=== PATIENT | female | born 1985 | race Two or more races ===

== ENCOUNTER 2023-05-27 07:20 | Emergency (ER) | payer OTHER ==
[~2023-05-27] VITALS: Ht 157.5 cm; Wt 69.1 kg
[2023-05-27 07:46] VITALS: BP 142/94; PULSE 110; RESP 17; TEMP 98.8; O2SAT 96
[2023-05-27 08:21] LABS: Rapid Influenza A Negative (Negative)
[2023-05-27 08:22] LABS: Rapid Influenza B Positive (Negative)
[2023-05-27 08:23] LABS: COVID19 ANTIGEN SOFIA FIA NEGATIVE (NEGATIVE)
[2023-05-27] MEDS ORDERED: ACET500T58 PO (08:27)
== END 2023-05-27 08:31 | disposition home or self-care (01) ==
LOC: ER 07:20
DX: J10.1 Influenza due to other identified influenza virus with other respiratory manifestations (principal); R50.9 Fever, unspecified; R19.7 Diarrhea, unspecified; Z20.822 Contact with and (suspected) exposure to COVID-19
CPT/HCPCS: 36415; 87426; 87804